=== PATIENT | male | born 1970 | race Caucasian/White ===

== ENCOUNTER 2021-12-04 06:46 | Inpatient (IN) | payer SELFPAY ==
[2021-12-04] VITALS (19 sets, daily range): BP systolic 106–156; BP diastolic 71–103; PULSE 50–112; RESP 16–22; TEMP 36.8; O2SAT 94–100; BMI 20.9; BMI 20.3
--- NOTE | 2021-12-04 | USCV_ITS ---
Transthoracic Echo Adrianne Broderick Age: 51 Gender: M : 1970 Exam Date: 12/04/2021 20:05 Ordering Phys: Moustapha Douglas MD Technologist: Raf Valdes Exam Location: [facility] [place] Indication: chest pain BP: / HR: 52 Rhythm: Sinus Technical Quality: Adequate MEASUREMENTS (Male / Female) Normal Values 2D ECHO LV Diastolic Diameter PLAX 3.5 cm 4.2 - 5.9 / 3.9 - 5.3 cm LV Systolic Diameter PLAX 2.4 cm IVS Diastolic Thickness 1.1 cm 0.6 - 1.0 / 0.6 - 0.9 cm IVS Systolic Thickness 1.1 cm LVPW Diastolic Thickness 1.1 cm 0.6 - 1.0 / 0.6 - 0.9 cm LVPW Systolic Thickness 1.4 cm LVOT Diameter 2.0 cm LV Ejection Fraction 2D Teich 62.8 % LV Ejection Fraction MOD 2C 57.0 % LV Ejection Fraction 2C AL 57.5 % LA Diameter 3.0 cm LA Width 3.0 cm LA Height 3.4 cm RA Width 2.0 cm RA Height 3.2 cm Aorta at Sinotubular Diameter 2.8 cm M-MODE Aortic Annulus Diameter 2.9 cm LA Ao Ratio MM 1.3 MV E Point Septal Separation 2.3 cm DOPPLER AV Peak Velocity 94.0 cm/s LVOT Peak Velocity 73.0 cm/s AV Area Cont Eq vti 2.4 cm squared AV Area Cont Eq pk 2.4 cm squared MV Area PHT 3.0 cm squared Mitral E to A Ratio 1.3 MV E' Velocity 39.0 cm/s Mitral E to MV E' Ratio 7.2 Mitral E to LV E' Lateral Ratio 6.9 Mitral E to LV E' Septal Ratio 7.5 PV Peak Velocity 95.0 cm/s FINDINGS Left Ventricle Normal left ventricular size and systolic function, EF 58 %. No regional wall motion abnormalities. Right Ventricle Mildly increased right ventricular size. Normal right ventricular systolic function. Right Atrium Mildly increased right atrial size. Left Atrium The left atrium is normal in size. Mitral Valve No gross abnormalities noted Aortic Valve Appears to be tricuspid. No gross abnormalities noted Tricuspid Valve No gross abnormalities noted Pulmonic Valve Pulmonic valve not well visualized. Pericardium Normal pericardium without effusion. Aorta Normal ascending aorta dimension. CONCLUSIONS Normal left ventricular size and systolic function, EF 58 %. No regional wall motion abnormalities. Right atrium and right ventricle appears to be mildly dilated. No gross valvular abnormalities noted There is no pericardial effusion. There are no intracardiac masses. No previous study is available for comparison. Dr Nubia Gonzales MD [facility] (Electronically Signed) Final Date: 05 December 2021 09:00 S
--- NOTE | 2021-12-04 07:11 | ECG_ITS ---
[facility] Test Date: 2021-12-04 Pat Name: Adrianne Broderick Department: Room: Gender: Male Hem Marker: : 1970 Requested By: Chico Mora Order Number: [id number] Reba MD: Kyree Gupta M.D. Measurements Intervals [place] Rate: 67 P: 87 [place]: 129 QRS: 81 QRSD: 87 T: 71 QT: 390 QTc: 414 Interpretive Statements SINUS RHYTHM SEPTAL MYOCARDIAL INFARCTION , OF INDETERMINATE AGE [40+ ms Q WAVE IN V1/V2] No previous ECG available for comparison Electronically Signed On 12-04-2021 17:55:59 CDT by Kyree Gupta M.D. [id number] f
--- NOTE | 2021-12-04 07:18 | ED_ITS ---
HPI - Chest Pain General: Chief Complaint: Chest Pain Stated Complaint: Chest Pains with sob Time Seen by Provider: 12/04/21 06:57 History of Present Illness: 51-year-old male presents to the emergency department chief complaint of shortness of breath and chest pain that has been ongoing intermittent since about 5:30 PM last night while watching TV he reports that the pain was intermittent with no radiation noted in the midsternal region. 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 He reports it resolved after some time in which another episode earlier this morning while driving which he had to stop and rest for approximately an hour. Patient reports he is a smoker and reports he has a known history of cardiac issues including valve issue many years ago he reports he not followed up with primary care or cardiology for quite some time. He does report he had a stress test years ago that came back unremarkable in the past. The patient is a smoker he reports no recent use of alcohol. He recalls that he had some midsternal chest pain with no radiation with increased shortness of breath. He does report having mild cough as well. He does not recall any pre-existing history pneumonia or bronchitis. Patient reports no recent sick or ill contacts reporting no other associated symptoms. Onset (ago): day(s) (1) Prior episodes: Yes Onset: during rest Pain location: substernal Pain radiation: none Severity: moderate Relieving factors: nothing Exacerbating factors: nothing Associated symptoms: Deny abdominal pain, dyspnea, fever(s), nausea or vomiting Review of Systems General: Reports: 10 or more systems reviewed and unremarkable except in HPI and below Const: Denies: fever(s), chills, fatigue or malaise Eyes: Denies: change in vision or blurry vision Card: Reports: chest pain and dyspnea on exertion Resp: Denies: dyspnea or productive cough GI: Denies: abdominal pain, nausea or vomiting : Denies: flank pain Musc: Denies: extremity pain or extremity swelling Skin/Breast: Denies: rash or pruritus Neuro: Denies: headache(s) Psych: Denies: anxiety or depression Migue/Lymph: Denies: easy bleeding All/Imm: Denies: urticaria, throat swelling or facial swelling Physical Exam Const: COMMON NORMALS: no acute distress, patient oriented x3 and healthy appearing HENMT: COMMON NORMALS: normocephalic and atraumatic HEAD & SCALP: normocephalic and atraumatic Eye: COMMON NORMALS: Equal, round and reactive pupils present and EOMs intact bilaterally PUPIL: Yes Equal, round and reactive pupils present Neck/C-Spine: COMMON NORMALS: full ROM, supple and no JVD Lymph: LYMPHATIC: no lymphadenopathy noted Chest: COMMONS NORMALS: normal inspection of the chest and normal palpation of entire chest wall Resp: EFFORT & INSPECTION: Yes able to speak in complete sentences AUSCULTATION: rhonchi and wheezes Cardio: COMMON NORMALS: no JVD, regular rate, regular rhythm, S1 normal heart sound present and S2 normal heart sound present RATE: regular rate RHYTHM: regular rhythm HEART SOUNDS: S1 normal heart sound present and S2 normal heart sound present GI: COMMON NORMALS: Normal to inspection, nondistended, normoactive bowel sounds present, Soft to palpation and non-tender INSPECTION: Yes normal to inspection PALPATION: Yes Soft to palpation : COMMON NORMALS: Yes no CVA tenderness BLADDER/KIDNEY EXAM: Yes no CVA tenderness Back/Pelvis: COMMON NORMALS: no CVA tenderness Extremity: COMMON NORMALS: normal to inspection and full ROM Neuro: COMMON NORMALS: patient oriented x3, CN's II-XII intact bilaterally, moves all extremities and no focal motor deficits Psych: COMMON NORMALS: mental status grossly normal, Normal thought process present, cooperative and normal affect THOUGHT PROCESS: Normal thought process present Skin: COMMON NORMALS: no rashes or lesions noted GENERAL SKIN EXAM: no rashes or lesions noted Course Vital Signs: Vital signs: Vital Signs Temperature 98.3 F 12/04/21 07:06 Pulse Rate 55 L 12/04/21 14:00 Respiratory Rate 16 12/04/21 13:27 Blood Pressure 111/73 12/04/21 14:00 Pulse Oximetry 96 12/04/21 14:00 MDM - Chest Pain Medical Decision Making Due to the patient's symptom condition IV established lab work imaging will be obtained EKG read does reveal some mild ST segment normalities in anterolateral leads unfortunate nothing to compare this to there is no extreme elevation greater than 2 mm. We will continue to follow currently patient is chest pain- free underlying concerns of anginal events are prominent we will continue to follow patient is a smoker and has several risk factors occluding hypertension with as well as normal follow-up with primary care over the course the last several years. We will continue to follow Patient's Covid test came back unremarkable CTA also came back unremarkable due to patient's underlying history and concerns of this being of cardiac etiology will be admitted this patient to the hospital service spoke to Dr. Douglas, that has granted acceptance. Lab Data : 12/04/21 07:20 12/04/21 07:20 Radiology Impressions Chest X-Ray 12/04/21 11:18 Impression: Negative chest. Chest CTA 12/04/21 15:09 IMPRESSION: 1. No evidence of pulmonary embolus. 2. Mild chronic emphysematous changes. No acute pulmonary infiltrates. 3. No other significant findings. Laboratory Results WBC 8.2 10^3/uL (4.0-10.0) 12/04/21 07:20 RBC 5.42 10^6/uL (4.1-5.3) H 12/04/21 07:20 Hgb 16.3 g/dL (11.7-16.6) 12/04/21 07:20 Hct 48.1 % (42.0-52.0) 12/04/21 07:20 MCV 88.7 fl (80-94) 12/04/21 07:20 MCH 30.1 pg (28.0-34.0) 12/04/21 07:20 MCHC 33.9 g/dL (30.0-36.0) 12/04/21 07:20 RDW 12.2 % (12.1-15.1) 12/04/21 07:20 Plt Count 240 10^3/cmm (130-400) 12/04/21 07:20 MPV 10.9 fL (7.4-10.4) H 12/04/21 07:20 Neut % (Auto) 63.8 % 12/04/21 07:20 Lymph % (Auto) 28.1 % 12/04/21 07:20 [place]ardo % (Auto) 5.5 % 12/04/21 07:20 Eos % (Auto) 1.3 % 12/04/21 07:20 Baso % (Auto) 0.9 % 12/04/21 07:20 Neut # (Auto) 5.24 10^3/uL (1.8-7.7) 12/04/21 07:20 Lymph # (Auto) 2.3 10^3/uL (0.8-4.8) 12/04/21 07:20 Fajardo # (Auto) 0.5 10^3/uL (0.2-0.9) 12/04/21 07:20 Eos # (Auto) 0.1 10^3/uL (0.0-0.8) 12/04/21 07:20 Baso # (Auto) 0.1 10^3/uL (0.0-0.1) 12/04/21 07:20 Nucleated RBC % (auto) 0 % 12/04/21 07:20 Nucleated RBCs # 0.0 /100WBC 12/04/21 07:20 Sodium 137 mmol/L (136-145) 12/04/21 07:20 Potassium 4.0 mmol/L (3.5-5.1) 12/04/21 07:20 Chloride 98 mmol/L (98-107) 12/04/21 07:20 Carbon Dioxide 27 mmol/L (22-29) 12/04/21 07:20 Anion Gap 16.0 (5-19) 12/04/21 07:20 BUN 7 mg/dL (6-20) 12/04/21 07:20 Creatinine 0.6 mg/dL (0.7-1.2) L 12/04/21 07:20 GFR Calculation 140.9 mL/min (90-130) H 12/04/21 07:20 Glucose 100 mg/dL (65-115) 12/04/21 07:20 Calculated Osmolality 282 mOsm/kg (285-295) L 12/04/21 07:20 Calcium 9.9 mg/dL (8.5-10.5) 12/04/21 07:20 Total Bilirubin 0.6 mg/dL (0.15-1.2) 12/04/21 07:20 AST 21 U/L (0-40) 12/04/21 07:20 ALT 16 U/L (0-41) 12/04/21 07:20 Alkaline Phosphatase 109 IU/L (40-130) 12/04/21 07:20 Troponin T Baseline 7 ng/L (0-15) 12/04/21 07:20 Troponin T 120 Minute 6.00 ng/L (0-15) 12/04/21 09:22 Delta Troponin T -1.0 ABS# (0-10) L 12/04/21 09:22 Troponin T Hi Sens 6Hr 6.91 ng/L (0-15) 12/04/21 13:23 Troponin T Hi Sens 6Hr Delta -0.11 ng/L (0-12) L 12/04/21 13:23 NT-Pro-B Natriuret Pep 18 pg/mL (0-125) 12/04/21 07:20 Total Protein 8.1 g/dL (6.6-8.7) 12/04/21 07:20 Albumin 4.9 g/dL (3.5-5.2) 12/04/21 07:20 Globulin 3.2 g/dL (1.3-4.6) 12/04/21 07:20 Urine Color Yellow (Yellow) 12/04/21 07:35 Urine Appearance Clear (CLEAR) 12/04/21 07:35 Urine pH 6 (5-7) 12/04/21 07:35 Ur Specific [place] 1.015 (1.005-1.030) 12/04/21 07:35 Urine Protein Neg (Negative) 12/04/21 07:35 Urine Glucose (UA) Norm (Normal) 12/04/21 07:35 Urine Ketones Negative (Negative) 12/04/21 07:35 Urine Blood Neg (Negative) 12/04/21 07:35 Urine Nitrate Negative (Negative) 12/04/21 07:35 Urine Bilirubin Neg (Negative) 12/04/21 07:35 Urine Urobilinogen Norm mg/dL (Negative) 12/04/21 07:35 Ur Leukocyte Esterase Negative (Negative) 12/04/21 07:35 Urine Opiates Screen Negative ng/mL (Negative) 12/04/21 07:35 Ur Barbiturates Screen Negative ng/mL (Negative) 12/04/21 07:35 Ur Phencyclidine Scrn Negative ng/mL (Negative) 12/04/21 07:35 Ur Amphetamines Screen Negative ng/mL (Negative) 12/04/21 07:35 U Benzodiazepines Scrn Negative ng/mL (Negative) 12/04/21 07:35 Urine Cocaine Screen Negative ng/mL (Negative) 12/04/21 07:35 U Marijuana (THC) Screen Negative ng/mL (Negative) 12/04/21 07:35 Coronavirus 229E (PCR) Not detected (NOT DETECT) 12/04/21 12:04 SARS-CoV-2 (PCR) Not detected (NOT DETECT) 12/04/21 12:04 Discharge Plan Discharge Patient Disposition: Admitted As Inpatient Clinical Impression: Chest pain with moderate risk of acute coronary syndrome, Bronchitis Condition: Stable Coding Level of Care Code ED Musical Engineer for Radha Fwd Exam Comprehensive
[2021-12-04] MEDS: sodium chloride 0.9% 500 ML 999 ML IV (07:25)
[2021-12-04] MEDS: aspirin 81 mg Chew Tablet 324 MG PO (07:27)
[2021-12-04] MEDS: nitroglycerin 0.4 mg sublingual Tablet SUBLINGUAL (07:34)
[2021-12-04 07:38] LABS: Basophils # 0.1 10^3/uL (0.0-0.1); Basophils % 0.9 %; Eosinophils # 0.1 10^3/uL (0.0-0.8); Eosinophils % 1.3 %; Hematocrit 48.1 % (42.0-52.0); Hemoglobin 16.3 g/dL (11.7-16.6); Lymphocytes # 2.3 10^3/uL (0.8-4.8); Lymphocytes % 28.1 %; Mean Corpuscular HGB Conc 33.9 g/dL (30.0-36.0); Mean Corpuscular Hemoglobin 30.1 pg (28.0-34.0); Mean Corpuscular Volume 88.7 fl (80-94); Mean Platelet Volume 10.9 fL (7.4-10.4); Monocytes # 0.5 10^3/uL (0.2-0.9); Monocytes % 5.5 %; Neutrophils # 5.24 10^3/uL (1.8-7.7); Neutrophils % 63.8 %; Nucleated Red Blood Cells % 0 %; Platelet Count 240 10^3/cmm (130-400); Red Blood Count 5.42 10^6/uL (4.1-5.3); Red Cell Distribution Width 12.2 % (12.1-15.1); White Blood Count 8.2 10^3/uL (4.0-10.0)
[2021-12-04 07:40] LABS: Add Urine Microscopic? NO; Charge for UA Resulting for Rev
[2021-12-04 07:54] LABS: Bilirubin Urine Neg (Negative); Blood Urine Neg (Negative); Glucose Urine UA Norm (Normal); Ketones Urine Negative (Negative); Leukocyte Esterase Urine Negative (Negative); Nitrate Urine Negative (Negative); Protein Urine Neg (Negative); Specific Gravity, Urine 1.015 (1.005-1.030); Urine Appearance Clear (CLEAR); Urine Color Yellow (Yellow); Urobilinogen Urine Norm (Negative); pH Urine 6 (5-7)
[2021-12-04 07:59] LABS: Troponin(5th) Baseline 7 ng/L (0-15)
[2021-12-04 07:59] LABS: Amphetamines Screen Urine Negative (Negative); Barbiturates Screen Urine Negative (Negative); Benzodiazepines Screen Urine Negative (Negative); Cocaine Screen Urine Negative (Negative); Opiate Screen Urine Negative (Negative); PCP Screen Urine Negative (Negative); THC Screen Urine Negative (Negative)
[2021-12-04 08:09] LABS: Alanine Aminotransferase 16 U/L (0-41); Albumin Level 4.9 g/dL (3.5-5.2); Alkaline Phosphatase 109 IU/L (40-130); Aspartate Amino Transferase 21 U/L (0-40); Blood Urea Nitrogen 7 mg/dL (6-20); Calcium 9.9 mg/dL (8.5-10.5); Carbon Dioxide 27 mmol/L (22-29); Chloride 98 mmol/L (98-107); Globulin 3.2 g/dL (1.3-4.6); Glomerular Filtration Rate 140.9 mL/min (90-130); Glucose 100 mg/dL (65-115); NT Pro B Type Natriuretic Pept 18 pg/mL (0-125); Osmolality Calculated 282 mOsm/kg (285-295); Sodium 137 mmol/L (136-145); Total Bilirubin 0.6 mg/dL (0.15-1.2); Total Protein 8.1 g/dL (6.6-8.7)
--- NOTE | 2021-12-04 09:11 | ECG_ITS ---
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 Measurements Intervals [place] Rate: 53 P: 86 RI: 128 QRS: 83 QRSD: 78 T: 74 QT: 433 QTc: 409 Interpretive Statements SINUS BRADYCARDIA SEPTAL MYOCARDIAL INFARCTION , OF INDETERMINATE AGE [40+ ms Q WAVE IN V1/V2] Compared to ECG 12/04/2021 07:04:08 Sinus rhythm no longer present Myocardial infarct finding still present Electronically Signed On 12-04-2021 18:00:27 CDT by Kyree Gupta M.D. [email or web address] for women and [email or web address] Messengerohio[facility].SmartSignal/store/OM/[id number]
[2021-12-04] MEDS: fentaNYL 50 mcg/mL INJ 2mL 25 MCG IVP (09:22)
[2021-12-04] MEDS: ipratropium-albuterol 3 mL Neb INHALATION ×2 (10:46→21:44)
--- NOTE | 2021-12-04 11:18 | XR_ITS ---
WS: [id number] Chest 2 views, 12/04/2021 Clinical Data: chest pain Comparison: None. Findings: No nodules, masses or effusions are seen. The heart is normal. The pulmonary vascularity is not increased. No pneumonia or pneumothorax is seen. XR/XR chest 2V* [id number] Impression: Negative chest.
--- NOTE | 2021-12-04 13:11 | ECG_ITS ---
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 Measurements Intervals [place] Rate: 50 P: 81 [place]: 140 QRS: 73 QRSD: 84 T: 67 QT: 435 QTc: 400 Interpretive Statements SINUS BRADYCARDIA SEPTAL MYOCARDIAL INFARCTION , OF INDETERMINATE AGE [40+ ms Q WAVE IN V1/V2] Compared to ECG 12/04/2021 09:17:39 No significant changes Electronically Signed On 12-04-2021 17:58:40 CDT by Kyree Gupta M.D. [id number]
[2021-12-04 14:01] LABS: Troponin 5 6HR 6.91 ng/L (0-15)
[2021-12-04 14:17] LABS: Adenovirus Not Detected (NOT DETECT); Chlamydia Pneumoniae Not Detected (NOT DETECT); Coronavirus 229E,HKU1,NL63,OC4 Not Detected (NOT DETECT); Human Metapneumovirus Not Detected (NOT DETECT); Human Rhinovirus/Enterovirus Not Detected (NOT DETECT); Influenza A Not Detected (NOT DETECT); Influenza A H1 Not Detected (NOT DETECT); Influenza A H1-2009 Not Detected (NOT DETECT); Influenza A H3 Not Detected (NOT DETECT); Influenza B Not Detected (NOT DETECT); Mycoplasma Pneumoniae Not Detected (NOT DETECT); Parainfluenza Virus Type 1 Not Detected (NOT DETECT); Parainfluenza Virus Type 2 Not Detected (NOT DETECT); Parainfluenza Virus Type 3 Not Detected (NOT DETECT); Parainfluenza Virus Type 4 Not Detected (NOT DETECT); Respiratory Syncytial Virus A Not Detected (NOT DETECT); Respiratory Syncytial Virus B Not Detected (NOT DETECT); SARS-COV-2 Not Detected (NOT DETECT)
[2021-12-04 14:18] LABS: Troponin 5 6HR Delta -0.11 ng/L (0-12)
--- NOTE | 2021-12-04 15:09 | CT_ITS ---
WS: [id number] CTA OF THE CHEST WITH PULMONARY EMBOLISM PROTOCOL TECHNIQUE: High-resolution contrast enhanced CTA of the chest with coronal and sagittal reformatted i mages with pulmonary embolism protocol. MIP images are also reviewed. CLINICAL INFORMATION: pleuritic chest pain COMPARISON: None. DLP: 497.[address] scans at [facility] use at least one of these dose optimization techniques: automated e xposure control; mA and/or kV adjustment per patient size (includes targeted exams where dose is matc hed to clinical indication); or iterative reconstruction. FINDINGS: Proximal main pulmonary arteries are normal. Normal segmental and subsegmental pulmonary arteries. No evidence of pulmonary embolus. Normal caliber thoracic aorta. Mild chronic emphysematous changes. No acute pulmonary infiltrates. No focal pneumonia or pleural flu id. Partially visualized upper abdominal contents are normal. CT/CT angio chest PE protcl [id number] IMPRESSION: 1. No evidence of pulmonary embolus. 2. Mild chronic emphysematous changes. No acute pulmonary infiltrates. 3. No other significant findings.
[2021-12-04] MEDS: iohexol 350 mg/mL 100 mL Btl IV (15:19)
--- NOTE | 2021-12-04 18:19 | PM.HP ---
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 Patient does complain shortness of breath with exertion, which he attributes to longstanding smoking history. Upon arrival in the ER he was worked up for above mentioned complaint: Pertinent imaging studies: CTA chest: No pulmonary embolism, chronic emphysematous changes X-ray chest: No infiltrates no effusion or pneumothorax, no pulmonary vascular congestion EKG: Sinus rhythm, no acute ST-T wave changes Pertinent labs: WBC 8.2, H&H:16/48 . plt: 240 , sodium 137 serum potassium 4 BUN serum creatinine 7/ 0.6 , Troponin trend: 7, 6, 6.91 Urinalysis is clean , U tox negative, Covid PCR negative Patient got aspirin 325 mg p.o. one-time dose in the ER, he also received fentanyl 25 mcg IV one-time dose Review of Systems General: Reports: 10 or more systems reviewed and unremarkable except in HPI and below Const: Denies: fever(s), chills, body aches, change in appetite or diaphoresis Card: Denies: palpitations, edema, swelling of feet/ankles, dyspnea on exertion, orthopnea or leg pain with exertion Resp: Denies: dyspnea, productive cough, wheezing or pain on inspiration GI: Denies: abdominal pain, nausea, vomiting, diarrhea or constipation : Denies: flank pain or difficulty urinating Musc: Denies: back pain, extremity pain or extremity swelling Neuro: Denies: headache(s), difficulty walking or confusion Medications/Allergies Home Medications Medication Instructions Recorded Confirmed Last Taken Type No Known Home Medications 12/04/21 12/04/21 Unknown History Allergies Allergy/AdvReac Type Severity Reaction Status Date / Time Penicillins Allergy ADR-Gastrointestinal Verified 12/04/21 08:44 Upset Vitals/I&O/Wt Last Vital Signs Temp 98.3 F 12/04/21 07:06 Pulse 55 L 12/04/21 17:20 Resp 16 12/04/21 17:20 BP 108/71 12/04/21 17:20 Pulse Ox 96 12/04/21 17:20 12/04/21 12/04/21 12/04/21 06:59 14:59 22:59 Intake Total 500 / 500 Balance 500 / 500 Weight last 48 hrs Weight 60.781 kg Physical Exam Const: COMMON NORMALS: patient oriented x3 HENMT: COMMON NORMALS: normocephalic and atraumatic HEAD & SCALP: normocephalic and atraumatic Eye: GENERAL EYE: appearance normal, both eyes and all related structures Chest: COMMONS NORMALS: normal inspection of the chest and normal palpation of entire chest wall CHEST: Yes Symmetrical chest wall rise Resp: COMMON NORMALS: normal respiratory effort, No retractions, No use of accessory muscles and clear to auscultation bilaterally EFFORT & INSPECTION: Yes symmetric chest movement AUSCULTATION: clear to auscultation bilaterally OTHER: Diminished air entry bilaterally Cardio: COMMON NORMALS: regular rate, regular rhythm, S1 normal heart sound present, S2 normal heart sound present, No gallops present (Cardio), No murmurs present (Cardio), No rub (Cardio) and Peripheral pulses 2+ throughout RATE: regular rate RHYTHM: regular rhythm HEART SOUNDS: S1 normal heart sound present and S2 normal heart sound present PERIPHERAL PULSES: Peripheral pulses 2+ throughout GI: COMMON NORMALS: Normal to inspection, nondistended, normoactive bowel sounds present, Soft to palpation, non-tender, No hepatosplenomegaly present and no masses AUSCULTATION: Yes normoactive bowel sounds PALPATION: Yes Soft to palpation and Yes No hepatosplenomegaly present RECTAL EXAM: Yes deferred Extremity: COMMON NORMALS: no clubbing, cyanosis or edema and no pedal edema Neuro: COMMON NORMALS: patient oriented x3 Data : 12/04/21 07:20 12/04/21 07:20 A&P Assessment and plan (1) Chest pain: Status: Acute (2) COPD (chronic obstructive pulmonary disease): Status: Acute Plan 51 year old male with pmh chronic smoking 1-1/2 pack close to 40 years, 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 Assessment Chest pain: The only important risk factor in his case is, age male sex and his chronic longstanding smoking history. Patient denies any hypertension diabetes family history of coronary artery disease. 2D echo TSH Lipid panel N.p.o. after midnight for nuclear stress test Aspirin 81 mg p.o. daily Statin 40 mg p.o. daily Sublingual nitro #COPD: Patient has diminished air entry bilaterally, emphysematous changes on CT, minimal wheezing. DuoNebs #DVT prophylaxis: On Lovenox #CODE STATUS: Full code Attestations Medical Necessity Statement*: Patient is to be in hospital for chest pain management and work-up. Coding Level of Care Code Acute Bone Cooking Operator for [facility] Fwd Exam Comprehensive Diagnoses Chest pain R07.9 COPD (chronic obstructive pulmonary disease) J44.9
--- NOTE | 2021-12-04 19:40 | ECG_ITS ---
[facility] Test Date: 2021-12-05 Pat Name: Adrianne Broderick Department: Room: 112 Gender: Male Electronic Prepress Technician: Sophia Winn : 1970 Requested By: Moustapha Douglas Order Number: [id number] Reba MD: Jolynn Campbell M.D. Interpretive Statements NAME OF STUDY: LEXISCAN SESTAMIBI STRESS TEST INDICATION: Chest Pain PROCEDURE: At the baseline, the blood pressure was 111/77 mmHg, oxygen saturation 95% with a heart rate of 71 bpm. The electrocardiogram showed normal sinus rhythm, normal axis with possible old septal infarct. The Lexiscan was infused over a period of 20 seconds. A total of 0.4 milligrams of Lexiscan was infused. The stress phase was continued for a total of 5 minutes. Heart rate at the end of the stress phase was 97 bpm, oxygen saturation 94% with a blood pressure of 126/73 mmHg. The EKG at the peak infusion revealed sinus tachycardia with no significant ST-T wave changes. The study was terminated due to protocol completion. Sestamibi was injected 20 seconds after the Lexiscan infusion. Blood pressure at the end of the recovery phase was 116/70 mmHg, oxygen saturation 92% with a heart rate of 97 beats per minute. CONCLUSION: 1. Normal EKG response to LexiScan infusion. 2. No LexiScan induced chest pain or cardiac arrhythmia. 3. Normal blood pressure and heart rate response. 4. Sestamibi/sestamibi perfusion scan pending; see separate report. Electronically Signed On 12-06-2021 13:15:32 CDT by Jolynn Campbell M.D. [id number]
[2021-12-04] MEDS: atorvastatin 40 mg Tablet PO (21:03)
[2021-12-04] MEDS: enoxaparin 40 mg/0.4 mL Syringe SUBCUT (21:03)
[2021-12-05] VITALS (14 sets, daily range): BP systolic 116–131; BP diastolic 66–81; PULSE 67–98; RESP 14–23; TEMP 36.7; O2SAT 95–97
[2021-12-05] MEDS: ipratropium-albuterol 3 mL Neb INHALATION ×4 (00:17→15:37)
--- NOTE | 2021-12-05 04:19 | PC.NURSE ---
Patient has had no complaints of pain throughout the night.
[2021-12-05 04:27] LABS: Basophils % 0.4 %; Eosinophils # 0.1 10^3/uL (0.0-0.8); Eosinophils % 1.1 %; Hematocrit 43.9 % (42.0-52.0); Lymphocytes % 21.8 %; Mean Corpuscular HGB Conc 34.2 g/dL (30.0-36.0); Mean Corpuscular Hemoglobin 30.4 pg (28.0-34.0); Mean Platelet Volume 10.9 fL (7.4-10.4); Monocytes # 0.4 10^3/uL (0.2-0.9); Monocytes % 4.2 %; Neutrophils # 6.59 10^3/uL (1.8-7.7); Neutrophils % 72.2 %; Nucleated Red Blood Cells % 0 %; Platelet Count 218 10^3/cmm (130-400); Red Blood Count 4.93 10^6/uL (4.1-5.3); Red Cell Distribution Width 12.3 % (12.1-15.1); White Blood Count 9.1 10^3/uL (4.0-10.0)
[2021-12-05 04:58] LABS: Alanine Aminotransferase 13 U/L (0-41); Albumin Level 3.8 g/dL (3.5-5.2); Alkaline Phosphatase 91 IU/L (40-130); Aspartate Amino Transferase 17 U/L (0-40); Blood Urea Nitrogen 8 mg/dL (6-20); Calcium 9.4 mg/dL (8.5-10.5); Carbon Dioxide 25 mmol/L (22-29); Chloride 103 mmol/L (98-107); Chol HDL Ratio 3.31 mg/dL (1.0-5.00); Cholesterol 139 mg/dL (0-200); Globulin 3.1 g/dL (1.3-4.6); Glomerular Filtration Rate 140.9 mL/min (90-130); Glucose 90 mg/dL (65-115); HDL Cholesterol 42 mg/dL (60-100); LDL Cholesterol Calculated 80 mg/dL (50-129); Osmolality Calculated 282 mOsm/kg (285-295); Sodium 137 mmol/L (136-145); Total Bilirubin 0.4 mg/dL (0.15-1.2); Total Protein 6.9 g/dL (6.6-8.7); Triglycerides 86 mg/dL (0-150)
[2021-12-05] MEDS: regadenoson 0.4 Mg/5 ml Syringe IVP (07:39)
[2021-12-05] MEDS: aspirin 81 mg EC Tablet PO (09:35)
--- NOTE | 2021-12-05 18:08 | P.DS_ITS ---
Discharge Providers Date of Admission: 12/04/21 16:52 Date of Discharge: December 05, 2021 Attending Provider at Admission: Moustapha Douglas MD Attending Provider at Discharge: Bertin Fragoso Diagnoses at Discharge Discharge Diagnosis (1) Chest pain: Status: Acute (2) COPD (chronic obstructive pulmonary disease): Status: Acute Reason for Visit Reason for Visit: Chest Pains with sob Hospital Course Hospital Course Atrial current smoker, was monitored in the hospital after presenting with substernal chest pain, 8/10, radiating to the right shoulder, intermittent, lasting 5 to 10 minutes, with spontaneous resolution, experiencing since night before presentation. He has been having some dry cough as well, nonproductive. Reports history of COPD for which he intermittently uses a nebulizer at home. CT angiogram of the chest on presentation was negative for PE, showed chronic erythematous changes. No suggestion of focal pneumonia. Covid PCR was negative. He was afebrile, without leukocytosis. Troponin series without elevation. He was monitored on telemetry, underwent assessment by TTE as well as stress testing. TTE showed normal ejection fraction, no R WMA. No gross valvular abnormalities. Right atrium and right ventricle mildly dilated. Lexiscan nuclear stress test showed small size perfusion normality of mild severity of apical inferior and apical septal garcia. Likely representing attenuation artifact, however, small area of ischemia in left ear descending artery territory cannot be completely ruled out. Discussed results with him. Discussed also possibility of false falsely negative result. He has been feeling well, without any recurrence of chest pain or pressure. Given he is otherwise done well, and with unremarkable echocardiogram he will be returning home, but knows to seek medical attention in case of recurrence of symptoms. Understands to also follow-up with his primary doctor. He is asked to stop smoking, please assist him if possible with this difficult task. Continue to optimize risk factors of coronary disease. Due to COPD exacerbation with dry cough, today small bowel sputum, he is given a brief course of 5 days of prednisone. Additional DuoNeb to use in his nebulizer, and Robitussin-DM. Physical Exam Const: COMMON NORMALS: no acute distress and patient oriented x3 HENMT: COMMON NORMALS: oropharynx normal Neck/C-Spine: COMMON NORMALS: no JVD Resp: COMMON NORMALS: normal respiratory effort and clear to auscultation bilaterally AUSCULTATION: clear to auscultation bilaterally Cardio: COMMON NORMALS: no JVD, regular rhythm, S1 normal heart sound present, S2 normal heart sound present and No murmurs present (Cardio) RHYTHM: regular rhythm HEART SOUNDS: S1 normal heart sound present and S2 normal heart sound present GI: COMMON NORMALS: Normal to inspection, nondistended, normoactive bowel sounds present, Soft to palpation and non-tender PALPATION: Yes Soft to palpation Extremity: COMMON NORMALS: no joint enlargement and no pedal edema Neuro: COMMON NORMALS: patient oriented x3 and moves all extremities Skin: COMMON NORMALS: no rashes or lesions noted GENERAL SKIN EXAM: no rashes or lesions noted Discharge Data Studies Completed and Pending Completed Studies During Hospitalization Category Date Time Status CTA chest [CT angio chest PE protcl [id number]] Urgent Cat Scan 12/04/21 15:09 Completed Cardiac Stress Test MIBI [Sestamibi Stress Test Request Exams 12/04/21 19:40 Draft ] Routine XR chest 2V* [id number] Stat Exams 12/04/21 11:18 Completed NM obey perf SPECT r/s* [id number] Routine Nuc Med 12/05/21 19:41 Completed CV. echo complete* [id number] Routine Ultrasound 12/04/21 Completed Pending at discharge Category Date Time Status Complete Blood Count w/Auto AM LABS Lab 12/06/21 04:00 Ordered Complete Blood Count w/Auto AM LABS Lab 12/07/21 04:00 Ordered Comprehensive Metabolic Panel AM LABS Lab 12/06/21 04:00 Ordered Comprehensive Metabolic Panel AM LABS Lab 12/07/21 04:00 Ordered Radiology Impressions Chest X-Ray 12/04/21 11:18 Impression: Negative chest. Chest CTA 12/04/21 15:09 IMPRESSION: 1. No evidence of pulmonary embolus. 2. Mild chronic emphysematous changes. No acute pulmonary infiltrates. 3. No other significant findings. Laboratory Results WBC 9.1 10^3/uL (4.0-10.0) 12/05/21 04:19 RBC 4.93 10^6/uL (4.1-5.3) 12/05/21 04:19 Hgb 15.0 g/dL (11.7-16.6) 12/05/21 04:19 Hct 43.9 % (42.0-52.0) 12/05/21 04:19 MCV 89.0 fl (80-94) 12/05/21 04:19 MCH 30.4 pg (28.0-34.0) 12/05/21 04:19 MCHC 34.2 g/dL (30.0-36.0) 12/05/21 04:19 RDW 12.3 % (12.1-15.1) 12/05/21 04:19 Plt Count 218 10^3/cmm (130-400) 12/05/21 04:19 MPV 10.9 fL (7.4-10.4) H 12/05/21 04:19 Neut % (Auto) 72.2 % 12/05/21 04:19 Lymph % (Auto) 21.8 % 12/05/21 04:19 Dickson % (Auto) 4.2 % 12/05/21 04:19 Eos % (Auto) 1.1 % 12/05/21 04:19 Baso % (Auto) 0.4 % 12/05/21 04:19 Neut # (Auto) 6.59 10^3/uL (1.8-7.7) 12/05/21 04:19 Lymph # (Auto) 2.0 10^3/uL (0.8-4.8) 12/05/21 04:19 Dickson # (Auto) 0.4 10^3/uL (0.2-0.9) 12/05/21 04:19 Eos # (Auto) 0.1 10^3/uL (0.0-0.8) 12/05/21 04:19 Baso # (Auto) 0.0 10^3/uL (0.0-0.1) 12/05/21 04:19 Nucleated RBC % (auto) 0 % 12/05/21 04:19 Nucleated RBCs # 0.0 /100WBC 12/05/21 04:19 Sodium 137 mmol/L (136-145) 12/05/21 04:19 Potassium 4.0 mmol/L (3.5-5.1) 12/05/21 04:19 Chloride 103 mmol/L (98-107) 12/05/21 04:19 Carbon Dioxide 25 mmol/L (22-29) 12/05/21 04:19 Anion Gap 13.0 (5-19) 12/05/21 04:19 BUN 8 mg/dL (6-20) 12/05/21 04:19 Creatinine 0.6 mg/dL (0.7-1.2) L 12/05/21 04:19 GFR Calculation 140.9 mL/min (90-130) H 12/05/21 04:19 Glucose 90 mg/dL (65-115) 12/05/21 04:19 Calculated Osmolality 282 mOsm/kg (285-295) L 12/05/21 04:19 Calcium 9.4 mg/dL (8.5-10.5) 12/05/21 04:19 Total Bilirubin 0.4 mg/dL (0.15-1.2) 12/05/21 04:19 AST 17 U/L (0-40) 12/05/21 04:19 ALT 13 U/L (0-41) 12/05/21 04:19 Alkaline Phosphatase 91 IU/L (40-130) 12/05/21 04:19 Troponin T Baseline 7 ng/L (0-15) 12/04/21 07:20 Troponin T 120 Minute 6.00 ng/L (0-15) 12/04/21 09:22 Delta Troponin T -1.0 ABS# (0-10) L 12/04/21 09:22 Troponin T Hi Sens 6Hr 6.91 ng/L (0-15) 12/04/21 13:23 Troponin T Hi Sens 6Hr Delta -0.11 ng/L (0-12) L 12/04/21 13:23 NT-Pro-B Natriuret Pep 18 pg/mL (0-125) 12/04/21 07:20 Total Protein 6.9 g/dL (6.6-8.7) 12/05/21 04:19 Albumin 3.8 g/dL (3.5-5.2) 12/05/21 04:19 Globulin 3.1 g/dL (1.3-4.6) 12/05/21 04:19 Triglycerides 86 mg/dL (0-150) 12/05/21 04:19 Cholesterol 139 mg/dL (0-200) 12/05/21 04:19 LDL Cholesterol, Calc 80 mg/dL (50-129) 12/05/21 04:19 HDL Cholesterol 42 mg/dL (60-100) L 12/05/21 04:19 LDL/HDL Ratio 1.90 RATIO (0.00-3.22) 12/05/21 04:19 Cholesterol/HDL Ratio 3.31 mg/dL (1.0-5.00) 12/05/21 04:19 TSH 1.70 uIU/mL (0.27-4.20) 12/05/21 04:19 Urine Color Yellow (Yellow) 12/04/21 07:35 Urine Appearance Clear (CLEAR) 12/04/21 07:35 Urine pH 6 (5-7) 12/04/21 07:35 Ur Specific [place] 1.015 (1.005-1.030) 12/04/21 07:35 Urine Protein Neg (Negative) 12/04/21 07:35 Urine Glucose (UA) Norm (Normal) 12/04/21 07:35 Urine Ketones Negative (Negative) 12/04/21 07:35 Urine Blood Neg (Negative) 12/04/21 07:35 Urine Nitrate Negative (Negative) 12/04/21 07:35 Urine Bilirubin Neg (Negative) 12/04/21 07:35 Urine Urobilinogen Norm mg/dL (Negative) 12/04/21 07:35 Ur Leukocyte Esterase Negative (Negative) 12/04/21 07:35 Urine Opiates Screen Negative ng/mL (Negative) 12/04/21 07:35 Ur Barbiturates Screen Negative ng/mL (Negative) 12/04/21 07:35 Ur Phencyclidine Scrn Negative ng/mL (Negative) 12/04/21 07:35 Ur Amphetamines Screen Negative ng/mL (Negative) 12/04/21 07:35 U Benzodiazepines Scrn Negative ng/mL (Negative) 12/04/21 07:35 Urine Cocaine Screen Negative ng/mL (Negative) 12/04/21 07:35 U Marijuana (THC) Screen Negative ng/mL (Negative) 12/04/21 07:35 Coronavirus 229E (PCR) Not detected (NOT DETECT) 12/04/21 12:04 SARS-CoV-2 (PCR) Not detected (NOT DETECT) 12/04/21 12:04 Vitals Last Vital Signs Temp 98.0 F 12/05/21 00:00 Pulse 90 12/05/21 15:41 Resp 18 12/05/21 15:37 BP 116/70 12/05/21 08:12 Pulse Ox 96 12/05/21 15:37 Discharge Plan Discharge Patient Disposition: Home Condition: Stable Prescriptions: New ipratropium-albuterol 0.5 mg-3 mg(2.5 mg base)/3 mL solution for nebulization 3 ml inhalation Q6H PRN (Reason: shortness of breath or wheezing) Qty: 90 0RF prednisone 20 mg tablet 20 mg PO DAILY 5 Days Qty: 5 0RF nicotine 21 mg/24 hr patch 24 hour 1 patch transdermal DAILY Qty: 28 2RF Robitussin Cough-Chest Vipul DM 10-200 mg capsule 1 tab-cap PO Q6H PRN (Reason: cough) Qty: 20 1RF nicotine (polacrilex) 4 mg lozenge 4 mg buccal Q1H PRN (Reason: nicotine cravings) Qty: 72 3RF Rx Instructions: do not exceed more than 20 dipika per day No Action No Known Home Medications 0RF Discharge Orders: Discharge Order (Routine); Ordered 12/05/21 Ordered By: Bertin Fragoso Referrals: Christian Burns [Other] - 4-7 days Discharge Diet: Cardiac Discharge Activity: Increase activity as tolerated Patient Instructions: Chest Pain (GEN), How to Stop Smoking (GEN), Cigarette Smoking and Your Health (GEN), COPD (Chronic Obstructive Pulmonary Disease) (GEN) Activity Restrictions/Additional Instructions: Please stop smoking. Please work with your primary doctor to optimize risk factors of coronary artery disease. Please complete short course of prednisone for COPD exacerbation. Continue cough medicine. In case of worsening cough, any additional shortness of breath, or recurrence of chest pain, please seek medical attention. Discharge Attestations Time Spent in Discharge Care*: greater than 30 min Quality Metrics Clinical Quality Measures [ No reported AMI, CVA or VTE this stay] Coding Level of Care Code Acute g [facility] note Diagnoses Chest pain R07.9 COPD (chronic obstructive pulmonary disease) J44.9
--- NOTE | 2021-12-05 19:11 | PC.NURSE ---
Patient educated on smoking cessation and COPD. Patient given prescriptions. Patient educated on follow-up appointment. IV removed with catheter intact. VSS. Patient has no complaints or pain at this time. VSS. Patient is alert and oriented. Patient signed discharge paper.
--- NOTE | 2021-12-05 19:41 | NMCV_ITS ---
NM obey perf SPECT r/s* [id number] Adrianne Broderick Age: 51 Gender: M : 1970 Exam Date: 12/05/2021 07:00 Ordering Phys: Moustapha Douglas MD Technologist: ISIDRO Leon Exam Location: [facility] Indications: CHEST PAIN STRESS TEST [facility] IMAGE PROTOCOL Rest/Stress 1 Lexiscan Day Radiopharmaceutical Dose (mCi) Administration Site Administered by Rest: Tc-99m 10.7 IV ISIDRO Mancini Sestamibi Stress:Tc-99m 32.5 IV ISIDRO Mancini Sestamibi Rest: 05-Dec-2021 60 Discovery 630 Stress: 05-Dec-2021 30 Discovery 630 0.4mg Lexiscan. Images obtained in supine and prone position. SPECT RESULTS Technical Quality: Excellent Raw Data Analysis: Normal Image Corrections: No attenuation or motion correction applied Summed Stress Score: 1 Summed Rest Score: 0 Summed Difference Score: 1 PERFUSION FINDINGS Small sized perfusion abnormality of mild severity of apical inferior and apical septal garcia on stress imaging FUNCTIONAL RESULTS (calculated via Gated SPECT) Stress Image LV EF (%): 81 Stress EDV (mL):84 TID: 1.16 Stress ESV (mL):16 FUNCTIONAL FINDINGS: The left ventricle is normal in size. Transient Ischemia Dilatation of 1.16. There is normal left ventricular systolic function. The left ventricular ejection fraction is normal with a value of 81%. There is normal left ventricular wall thickening with no regional wall motion abnormality. IMPRESSIONS 1. Small sized perfusion abnormality of mild severity of apical inferior and apical septal garcia. 2. This likely represents attenuation artifact. However small area of ischemia in left anterior descending artery territory cannot be completely ruled out. 3. Overall left ventricular systolic function is normal without regional wall motion abnormalities, LVEF=81%. 4. EKG portion of the study will be reported separately. Jolynn Campbell MD (Electronically Signed) Final Date: 05 December 2021 11:28 S
== END 2021-12-05 19:13 | disposition home or self-care (01) | DRG 313 ==
LOC: ER 16:51 → CSU 17:37
PROVIDERS: Admitting Provider Internal Medicine; Emergency Provider Emergency Medicine; Visit Provider Internal Medicine
DX: R07.9 Chest pain, unspecified (principal); F17.210 Nicotine dependence, cigarettes, uncomplicated; J44.9 Chronic obstructive pulmonary disease, unspecified; I10 Essential (primary) hypertension
CPT/HCPCS: 36415; 71046; 71275; 78452; 80053; 80061; 80306; 81003; 83880; 84443; 84484; 85025; 87635; 93005; 93017; 93306; 94640; 94664; 96374; 99285; A9500; J1650; J2785; J3010; J7040; Q9967